=== PATIENT | male | born 1955 | race Caucasian/White ===

== ENCOUNTER 2016-10-09 13:07 | Emergency (ER) | payer BC ==
[2016-10-09] MEDS ORDERED: ASPIRIN 81 MG CHEWABLE TABLET PO ONE (13:31)
[2016-10-09] MEDS ORDERED: NITROGLYCERIN 0.4MG SL TABLET #25 BTL SL PRN (13:31)
--- NOTE | 2016-10-09 13:47 | Emergency Department Record ---
History of Present Illness - General Chief Complaint: Chest Pain Stated Complaint: CHEST PAIN,GOMEZ Time Seen by Provider: 10/09/16 13:24 Source: Patient Mode of Arrival: Wheelchair Limitations: No limitations - History of Present Illness Initial Comments: pt was drinking out of a hose 4 days ago when he choked and passed out. this was witnessed by friends. ever since then he has been having chest pain MD Complaint: Chest pain Onset/Timin -: Days(s) Onset: Other Pain Location: Left chest Pain Radiation: None Severity scale (1-10): 5 Quality: Heaviness, Sharp Consistency: Constant Improves With: Nothing Worsens With: Inspiration, Other Anginal Symptoms: Nausea Treatments Prior to Arrival: None - Related Data Home Medications Medication Instructions Recorded Confirmed Last Taken Aspirin [Ecotrin] 81 mg PO DAILY 10/09/16 10/09/16 Unknown Atorvastatin Calcium [Atorvastatin 10 mg PO DAILY 10/09/16 10/09/16 Unknown Calcium] Calcium Carbonate/Vitamin D3 1 each PO BID 10/09/16 10/09/16 Unknown [Calcium 600 with Vit D Chew Tb] Fluticasone/Salmeterol [Advair 1 each IH BID 10/09/16 10/09/16 Unknown 250-50 Diskus] Ipratropium/Albuterol Sulfate 1 puff IH DAILY 10/09/16 10/09/16 Unknown [Combivent] Lisinopril [Lisinopril] 10 mg PO DAILY 10/09/16 10/09/16 Unknown Multivit-Min/Iron/Folic/Lutein 1 each PO DAILY 10/09/16 10/09/16 Unknown [Centrum Silver Women Tablet] [place]-3 Fatty Acids/Fish Oil [Fish 1 each PO DAILY 10/09/16 10/09/16 Unknown Oil 1,000 mg Capsule] Allergies Allergy/AdvReac Type Severity Reaction Status Date / Time amoxicillin Allergy RASH Verified 10/09/16 13:16 metronidazole [From Flagyl] Allergy RASH Verified 10/09/16 13:16 Travel Screening - Travel/Exposure Within Last 30 Days Have you traveled within the last 30 days?: No Review of Systems Reviewed: No additional complaints except as noted below Constitutional: Reports: As per HPI. Denies: Chills, Fever, Malaise, Night sweats, Weakness, Weight change Eyes: Reports: As per HPI. Denies: Eye discharge, Eye pain, Photophobia, Vision change ENT: Reports: As per HPI. Denies: Congestion, Dental pain, Ear pain, Epistaxis , Hearing loss, Throat pain Respiratory: Reports: As per HPI. Denies: Cough, Dyspnea, Hemoptysis, Stridor, Wheezes Cardiovascular: Reports: As per HPI. Denies: Arrhythmia, Chest pain, Dyspnea on exertion, Edema, Murmurs, Orthopnea, Palpitations, Paroxysmal nocturnal dyspnea, Rheumatic Fever, Syncope Endocrine: Reports: As per HPI. Denies: Fatigue, Heat or cold intolerance, Polydipsia, Polyuria Gastrointestinal: Reports: As per HPI. Denies: Abdominal pain, Constipation, Diarrhea, Hematemesis, Hematochezia, Melena, Nausea, Vomiting Genitourinary: Reports: As per HPI. Denies: Dysuria, Frequency, Hematuria, Incontinence, Retention, Testicular pain, Testicular mass, Urgency Musculoskeletal: Reports: As per HPI. Denies: Arthralgia, Back pain, Gout, Joint swelling, Myalgia, Neck pain Skin: Reports: As per HPI. Denies: Bruising, Change in color, Change in hair/ nails, Lesions, Pruritus, Rash Neurological: Reports: As per HPI. Denies: Abnormal gait, Confusion, Headache, Numbness, Paresthesias, Seizure, Tingling, Tremors, Vertigo, Weakness Psychiatric: Reports: As per HPI. Denies: Anxiety, Auditory hallucinations, Depression, Homicidal thoughts, Suicidal thoughts, Visual hallucinations Hematological/Lymphatic: Reports: As per HPI. Denies: Anemia, Blood Clots, Easy bleeding, Easy bruising, Swollen glands Past Medical History - SOCIAL HISTORY Smoking Status: Former smoker Alcohol Use: None Drug Use: None - RESPIRATORY Hx Respiratory Disorders: Yes Hx Sleep Apnea: Yes Hx of CPAP: Yes - CARDIOVASCULAR Hx Cardio Disorders: Yes Hx Deep Vein Thrombosis: Yes (in left leg in 2011) Hx Hypertension: Yes Comment:: High cholesterol - NEURO Hx Neuro Disorders: No - GI Hx GI Disorders: No - Hx Genitourinary Disorders: No - ENDOCRINE Hx Endocrine Disorders: No - MUSCULOSKELETAL Hx Musculoskeletal Disorders: No - PSYCH Hx Psych Problems: No - HEMATOLOGY/ONCOLOGY Hx Hematology/Oncology Disorders: No Family Medical History Any Significant Family History?: No Physical Exam - General General Appearance: Alert, Oriented x3, Cooperative, Mild distress - Head Head exam: Normal inspection - Eye Eye exam: Normal appearance, PERRL, EOMI Pupils: Normal accommodation - ENT ENT exam: Normal exam, Mucous membranes moist, Normal external ear exam, Normal orophraynx Ear exam: Normal external inspection. negative: External canal tenderness Nasal Exam: Normal inspection. negative: Discharge, Sinus tenderness Mouth exam: Normal external inspection, Tongue normal Teeth exam: Normal inspection. negative: Dental caries Throat exam: Normal inspection. negative: Tonsillar erythema, Tonsillar exudate - Neck Neck exam: Normal inspection, Full ROM. negative: Tenderness - Respiratory Respiratory exam: Normal lung sounds bilaterally. negative: Respiratory distress - Cardiovascular Cardiovascular Exam: Regular rate, Normal rhythm, Normal heart sounds - GI/Abdominal GI/Abdominal exam: Soft, Normal bowel sounds. negative: Tenderness - Rectal Rectal exam: Deferred - exam: Deferred - Extremities Extremities exam: Normal inspection, Full ROM, Normal capillary refill. negative: Tenderness - Back Back exam: Reports: Normal inspection, Full ROM. Denies: Muscle spasm, Rash noted, Tenderness - Neurological Neurological exam: Alert, CN II-XII intact, Normal gait, Oriented X3 - Psychiatric Psychiatric exam: Normal affect, Normal mood - Skin Skin exam: Dry, Intact, Normal color, Warm Course Vital Signs 10/09/16 13:10 Pulse Rate 93 H Respiratory 16 Rate Blood Pressure 134/72 Pulse Ox 95 - Reevaluation(s) Reevaluation #1: 10/09/16 15:31 pts pain has been constant since wednesday and is worse w movement. he has had it ever since his choking spell. Medical Decision Making - Lab Data Result diagrams: 10/09/16 13:15 10/09/16 13:15 Disposition Disposition: Discharge Clinical Impression: Chest tightness Disposition: Home, Self-Care Condition: (1) Good Instructions: Chest Pain (ED) Additional Instructions: follow up with family doctor this week. return sooner if worse. Forms: Patient Portal Access Quality - Quality Measures Quality Measures: N/A - Blood Pressure Screening Blood Pressure Classification: Pre-Hypertensive BP Reading Systolic Measurement: 134 Diastolic Measurement: 72 Screening for High Blood Pressure: < Normal BP, F/U Not Required > [[id number]] Normal BP Follow-up Interventions: No follow-up required
[2016-10-09 13:50] LABS: BASO % 0.3 % (0-6); EOS % 1.1 % (0-6); GRAN % 70.7 % (47-80); HEMATOCRIT 44.5 % (42.0-52.0); HEMOGLOBIN 14.8 gm/dl (14.0-18.0); LYMPH % 19.5 % (16-45); MEAN CELL VOLUME 89.5 fl (81-97); MEAN CORPUSCULAR HEMOGLOBIN 29.8 pg (27-33); MEAN CORPUSCULAR HGB CONC 33.3 g/dl (32-36); MONO % 8.4 % (0-9); PLATELET COUNT 284 K/uL (130-400); RED BLOOD COUNT 4.97 M/uL (4.40-5.70); RED CELL DISTRIBUTION WIDTH 13.1 % (11.5-14.5)
[2016-10-09 14:03] LABS: ALB/GLOB RATIO 1.4 (1.1-1.8); ALBUMIN 4.6 gm/dL (3.5-5.0); ALKALINE PHOSPHATASE 100 U/L (38-126); ALT/SGPT 53 U/L (21-72); ANION GAP 12.5 (7-16); AST/SGOT 30 U/L (17-59); BILIRUBIN,TOTAL 1.32 mg/dL (0.2-1.3); BLOOD UREA NITROGEN 16 mg/dL (9-20); CARBON DIOXIDE 25.5 mmol/L (22-30); CREATINE PHOSPHOKINASE 60 U/L (55-170); CREATININE 0.7 mg/dL (0.66-1.25); EST GLOMERULAR FILTRATION RATE > 60 ml/min; GLUCOSE,RANDOM 151 mg/dL (70-110); TOTAL PROTEIN 7.8 gm/dL (6.3-8.2)
[2016-10-09 14:16] LABS: CKMB 0.7 ug/L (0-6)
[2016-10-09 14:19] LABS: TROPONIN I < 0.012 ng/mL (0.00-0.034)
[2016-10-09] MEDS ORDERED: KETOROLAC 30 MG/ML VIAL IVP ONE (15:29)
--- NOTE | 2016-10-12 09:48 | RADIOLOGY REPORT ---
EXAM: CHEST, TWO VIEWS HISTORY: CHEST PAIN. TECHNIQUE: Frontal and lateral views of the chest were obtained. Comparison: 04/30/10 chest. FINDINGS: The heart size is stable. Scoliosis of the thoracic spine. The lungs are clear. No pneumothorax. IMPRESSION: NO ACUTE CARDIOPULMONARY PROCESS. JOB NUMBER: [id number] MTDD
== END 2016-10-09 16:08 | disposition home or self-care (01) ==
LOC: ER 13:07
DX: R07.89 Other chest pain (principal); R06.00 Dyspnea, unspecified; R11.0 Nausea; I10 Essential (primary) hypertension; Z87.891 Personal history of nicotine dependence
CPT/HCPCS: 99284 ×2; 96374; 82550; 85025; 82553; 84484; 80053; 85379; 83880; 71020; 93005; 93010; J1885